=== PATIENT | male | born 2000 | race Caucasian/White ===

== ENCOUNTER 2020-08-06 18:32 | Emergency (ER) | payer OTHER, BC ==
[2020-08-06 18:33] VITALS: TEMP 98.5
[2020-08-06] MEDS ORDERED: PERCOCET 325 MG1 TA2 PO (20:24)
[2020-08-06 22:02] VITALS: BP 142/82; PULSE 86
== END 2020-08-06 20:53 | disposition home or self-care (01) ==
LOC: COL.ER 18:32
DX: S42.022A Displaced fracture of shaft of left clavicle, initial encounter for closed fracture (principal); V00.831A Fall from motorized mobility scooter, initial encounter
CPT/HCPCS: J2270; J2405